=== PATIENT | female | born 1990 | race Caucasian/White ===

== ENCOUNTER 2020-12-17 11:15 | Emergency (ER) | payer OTHER ==
[~2020-12-17 11:15] MED LIST: COLACE 100MG C100 MG PO; IBUPROFEN600 MG PO; LORTAB 5-325 M1 EACH PO; NORCO 5-325 TA1 EACH PO; OMEPRAZOLE20 M1 PO; PRENATAL VITAM1 EAC5 PO; ZANTAC150 MG PO
[2020-12-17 13:39] LABS: HEMOGLOBIN 14.6 gm/dl (12.3-15.3); RED BLOOD COUNT 5.02 M/UL (4.00-5.10); WHITE BLOOD COUNT 14.6 K/UL (4.5-11.0)
[2020-12-17 14:00] LABS: BUN/CREATININE RATIO 16 (0-10)
== END 2020-12-17 16:55 | disposition home or self-care (01) ==
LOC: ER1 11:15
PROVIDERS: Physician Assistant Medical
DX: O20.9 Hemorrhage in early pregnancy, unspecified (principal); Z3A.10 10 weeks gestation of pregnancy; Z79.899 Other long term (current) drug therapy
CPT/HCPCS: 76817; 80053; 81001; 84702; 85025; 99284

== ENCOUNTER → 2021-05-19 | Outpatient (CLI) | payer OTHER ==
[~2021-05-19] MED LIST changes: +DOCUSATE SODIU100 MG PO; +HYDROCODON-ACE1 EAC4 PO; +TRANDATE 100 M100 MG PO
== END ==
LOC: GENOP 13:52
DX: O47.03 False labor before 37 completed weeks of gestation, third trimester (principal); O99.613 Diseases of the digestive system complicating pregnancy, third trimester; K21.9 Gastro-esophageal reflux disease without esophagitis; Z88.1 Allergy status to other antibiotic agents; Z3A.32 32 weeks gestation of pregnancy
CPT/HCPCS: 81001; 82731; G0463

== ENCOUNTER 2021-06-14 19:10 | Outpatient (CLI) | payer OTHER ==
[~2021-06-14 19:10] MED LIST changes: -DOCUSATE SODIU100 MG PO; -HYDROCODON-ACE1 EAC4 PO; -TRANDATE 100 M100 MG PO
[2021-06-15 00:06] LABS: RED BLOOD COUNT 3.73 M/UL (4.00-5.10); WHITE BLOOD COUNT 12.3 K/UL (4.5-11.0)
[2021-06-15 00:27] LABS: BUN/CREATININE RATIO 8 (0-10)
== END 2021-06-15 13:21 | disposition home or self-care (01) ==
LOC: GENOP 19:10
PROVIDERS: Obstetrics & Gynecology
DX: O60.03 Preterm labor without delivery, third trimester (principal); O13.3 Gestational [pregnancy-induced] hypertension without significant proteinuria, third trimester; Z3A.36 36 weeks gestation of pregnancy
CPT/HCPCS: 80053; 82570; 84156; 84550; 85025; 93005; G0463

== ENCOUNTER 2021-06-20 05:29 | Inpatient (IN) | payer OTHER ==
[~2021-06-20] VITALS: Ht 160 cm; Wt 97.5 kg
[2021-06-20] MEDS ORDERED: TRANDATE 100 M100 MG PO (08:13)
[2021-06-20] MEDS ORDERED: DOCUSATE SODIU100 MG PO (09:30)
[2021-06-20] MEDS ORDERED: IBUPROFEN600 MG PO (09:30)
[2021-06-20] MEDS ORDERED: HYDROCODON-ACE1 EAC4 PO (09:30)
[2021-06-21 04:30] LABS: HEMOGLOBIN 8.2 gm/dl (12.3-15.3)
== END 2021-06-21 17:11 | disposition home or self-care (01) | DRG 788 ==
LOC: OB 05:29
PROVIDERS: Obstetrics & Gynecology; ADMIT Obstetrics & Gynecology
PROC: 4A1HXCZ Monitoring of Products of Conception, Cardiac Rate, External Approach (ICD-10-PCS; 2021-06-20)
PROC: 10D00Z1 Extraction of Products of Conception, Low, Open Approach (ICD-10-PCS; principal; 2021-06-20 10:25)
DX: O34.211 Maternal care for low transverse scar from previous cesarean delivery (principal); Z3A.39 39 weeks gestation of pregnancy; Z37.0 Single live birth; O13.4 Gestational [pregnancy-induced] hypertension without significant proteinuria, complicating childbirth; O36.63X0 Maternal care for excessive fetal growth, third trimester, not applicable or unspecified; Z20.822 Contact with and (suspected) exposure to COVID-19; O99.62 Diseases of the digestive system complicating childbirth; K21.9 Gastro-esophageal reflux disease without esophagitis; Z80.1 Family history of malignant neoplasm of trachea, bronchus and lung; Z82.49 Family history of ischemic heart disease and other diseases of the circulatory system; Z88.8 Allergy status to other drugs, medicaments and biological substances
CPT/HCPCS: 36415; 81001; 82800; 85014; 85018; 90471; 90715; C9113; J1580; J1885; J2250; J2274; J2370; J2405; J2550; J2590; J3010; J7120